=== PATIENT | male | born 1990 | race Caucasian/White ===

== ENCOUNTER 2016-09-03 00:48 | Emergency (ER) | payer OTHER ==
[2016-09-03 00:53] VITALS: BP 162/83; PULSE 73; RESP 16; TEMP 98.2; O2SAT 97
[2016-09-03] MEDS ORDERED: predniSONE 20 MG TAB PO ONE (01:16)
--- NOTE | 2016-09-03 01:16 | EDPHY ---
H & P Stated Complaint: Right big toe pain, Hx Gout Time Seen by Provider: 09/03/16 00:59 HPI/ROS: HPI The patient presents with right great toe pain for the last 2 days which is achy , constant, worse with ambulation and associated with swelling of his toe. His it feels like his prior gout attacks, he has had about 3 of these.. REVIEW OF SYSTEMS Constitutional: No fever, no chills. Musculoskeletal: No back pain. Skin: No rashes. Neurological: No headache. PMHx: Gout PHYSICAL General Appearance: Alert, no distress Eyes: Pupils equal and round no injection ENT, Mouth: Mucous membranes moist Respiratory: Breathing comfortably Neurological: A&O, moves all extremities Skin: Warm and dry, no rashes Extremities: Right great toe is slightly erythematous, warm to touch overlying MTP, with edema, full range of motion Psychiatric: Patient is oriented X 3, there is no agitation Source: Patient Exam Limitations: No limitations - Personal History Current Tetanus/Diphtheria Vaccine: Yes Current Tetanus Diphtheria and Acellular Pertussis (TDAP): Yes - Medical/Surgical History Hx Asthma: No Hx Chronic Respiratory Disease: No Hx Diabetes: No Hx Cardiac Disease: No Hx Renal Disease: No Hx Cirrhosis: No Hx Alcoholism: No Hx HIV/AIDS: No Hx Splenectomy or Spleen Trauma: No Other PMH: gout, heart burn - Social History Smoking Status: Former smoker Constitutional: Initial Vital Signs Temperature (C) 36.8 C 09/03/16 00:50 Heart Rate 73 09/03/16 00:50 Respiratory Rate 16 09/03/16 00:50 Blood Pressure 162/83 H 09/03/16 00:50 O2 Sat (%) 97 09/03/16 00:50 O2 Delivery Mode Room Air Allergies/Adverse Reactions: No Known Allergies Allergy (Verified 02/15/14 00:07) Home Medications: Medication Instructions Recorded Nexium 09/03/16 predniSONE [predniSONE TAPER] 10 mg PO DAILY #18 ea 09/03/16 Medical Decision Making Differential Diagnosis: This is a 26-year-old male with history of gout who presents with right great toe pain, improved with ibuprofen at home. He does not have any fevers. His pain feels similar to prior gout attacks. Differential diagnosis includes gout flare less likely cellulitis, less likely septic joint given no fever, full range of motion. Because the patient has received prednisone before with good results, I will prescribe this to him. I have instructed him to continue taking ibuprofen. He will be discharged from the emergency room in can follow up with his primary care doctor if his symptoms are worse in any way. - Data Points Medications Given: Discontinued Medications Prednisone (Prednisone) 60 mg PO EDNOW ONE Stop: 09/03/16 01:17 Last Admin: 09/03/16 01:23 Dose: 60 mg Departure - Departure Disposition: [facility] IP Clinical Impression: Gout flare Qualifiers: Gout site: toe Gout etiology: unspecified cause Laterality: right Qualified Code(s): M10.9 - Gout, unspecified Condition: Good Instructions: Low Purine Diet (ED), Gout (ED) Additional Instructions: Please return to the emergency room if your worse in any way, develop more swelling or redness or developed a fever. Referrals: Gurjit Mock [Primary Care Provider] - As per Instructions Prescriptions: predniSONE [predniSONE TAPER] 10 mg PO DAILY #18 ea
== END 2016-09-03 01:24 ==
DX: M10.9 Gout, unspecified (principal)